=== PATIENT | female | born 1985 | race Caucasian/White ===

== ENCOUNTER 2021-02-06 07:30 | Emergency (ER) | payer OTHER ==
[~2021-02-06] VITALS: Ht 160 cm; Wt 61.4 kg
[2021-02-06 07:35] VITALS: BP 117/68
[2021-02-06] MEDS ORDERED: AMPH30TA2 PO (08:09)
[2021-02-06] MEDS ORDERED: ALPR0.5T7 PO (08:09)
[2021-02-06] MEDS ORDERED: AMPH20TA2 PO (08:09)
--- NOTE | 2021-02-06 08:19 | NUR ---
THE PATIENT IS A 35F WHO MOVED HERE FROM [place] AND HAS NOT ESTABLISHED WITH A DR YET. SHE NEEDS A REFILL FOR HER ADDERALL AND ALPRAZOLAM BEFORE HER FIRST APPT WITH HER PSYCHIATRIST ON 02/22. PROVIDER AT BEDSIDE FOR EVAL AND POC. CALL LIGHT WITHIN REACH.
== END 2021-02-06 09:15 | disposition home or self-care (01) ==
LOC: ED 08:20
DX: F41.9 Anxiety disorder, unspecified (principal); F90.9 Attention-deficit hyperactivity disorder, unspecified type; Z76.0 Encounter for issue of repeat prescription; Z87.891 Personal history of nicotine dependence
CPT/HCPCS: 99281